=== PATIENT | female | born 1990 | race Caucasian/White ===

== ENCOUNTER 2019-01-31 19:28 | Emergency (ER) | payer MEDICAID ==
--- NOTE | 2019-01-31 19:37 | ER Report ---
History and Physical Time Seen By MD: 19:33 HPI/ROS CHIEF COMPLAINT: Headache, shortness of breath HISTORY OF PRESENT ILLNESS: 28-year-old female patient presents to emergency room with complaint of shortness breath, headache. Patient states that she is currently traveling from [place] to [place]. She states that she developed some shortness of breath as well as headache this afternoon. She states the pain worse and so she decided she would stop and be evaluated. She states that she did come into town and then called EMS who brought to the emergency room. Patient states the shortness of breath seems to be worse with activity. She states she did have some very transient chest pain. She denies any nausea, vomiting or diarrhea. Patient states that she has not taken any medication for this. REVIEW OF SYSTEMS: Respiratory: As noted above Cardiovascular: No chest pain, no palpitations. Gastrointestinal: No vomiting, no abdominal pain. Musculoskeletal: No back pain. Allergies: Coded Allergies: acetaminophen (Verified Allergy, Intermediate, 01/31/19) hydrocodone (Verified Allergy, Intermediate, 01/31/19) Home Meds Active Scripts Amoxicillin/Pot Clav 875-125 Mg Tab (AUGMENTIN 875-125 TABLET) 1 Each Tablet, 1 TAB PO Q12H, #12 TAB Prov:BRIGIDO MOORE EXPLOSIVES OPERATOR 01/31/19 Past Medical/Surgical History Patient has a past medical history of cholecystitis, anxiety. Patient has a surgical history of cholecystectomy. Reviewed Nurses Notes: Yes Constitutional Vital Sign - Last 24 Hours 01/31/19 19:33 Temp 98.6 Pulse 84 Resp 18 B/P (MAP) 130/69 Pulse Ox 94 O2 Delivery Room Air Physical Exam General Appearance: The patient is alert, has no immediate need for airway protection and no current signs of toxicity. Respiratory: Chest is non tender, lungs are clear to auscultation. Cardiac: regular rate and rhythm Gastrointestinal: Abdomen is soft and non tender, no masses, bowel sounds normal. Musculoskeletal: Neck: Neck is supple and non tender. Extremities have full range of motion and are non tender. Skin: No rashes or lesions. Neuro: Patient is alert and oriented 4, cranial nerves II through XII grossly intact. DIFFERENTIAL DIAGNOSIS: After history and physical exam differential diagnosis was considered for headache including but not limited to subarachnoid hemorrhage, migraine headache, tension headache and infectious causes such as meningitis, pharyngitis and sinusitis. Included in the differential is shortness of breath including but not limited to pulmonary infectious process, COPD, asthma, pulmonary embolus and congestive heart failure. Medical Decision Making Data Points Result Diagram: 01/31/19190901/31/191909 Laboratory Hematology Test 01/31/19 19:10 White Blood Count 7.2 k/uL (4.5-11.0) Red Blood Count 5.69 M/uL (4.17-5.56) H Hemoglobin 14.5 g/dL (12.0-16.0) Hematocrit 43.5 % (34.0-47.0) Mean Corpuscular Volume 76.5 fL (80.0-96.0) L Mean Corpuscular Hemoglobin 25.4 pg (26.0-33.0) L Mean Corpuscular Hemoglobin Concent 33.3 g/dL (32.0-36.0) Red Cell Distribution Width 15.9 % (11.5-14.5) H Platelet Count 311 K/uL (150-450) Mean Platelet Volume 7.2 fL (7.2-11.1) Neutrophils (%) (Auto) 59.3 % (39.4-72.5) Lymphocytes (%) (Auto) 30.5 % (17.6-49.6) Monocytes (%) (Auto) 7.5 % (4.1-12.4) Eosinophils (%) (Auto) 2.2 % (0.4-6.7) Basophils (%) (Auto) 0.5 % (0.3-1.4) Nucleated RBC Relative Count (auto) 0.2 /100WBC Neutrophils # (Auto) 4.3 K/uL (2.0-7.4) Lymphocytes # (Auto) 2.2 K/uL (1.3-3.6) Monocytes # (Auto) 0.5 K/uL (0.3-1.0) Eosinophils # (Auto) 0.2 K/uL (0.0-0.5) Basophils # (Auto) 0.0 K/uL (0.0-0.1) Nucleated RBC Absolute Count (auto) 0.02 K/uL Erythrocyte Sedimentation Rate 32 mm/HOUR (0-20) H Chemistry Test 01/31/19 19:10 Sodium Level 139 mmol/L (137-145) Potassium Level 3.6 mmol/L (3.5-5.0) Chloride Level 106 mmol/L (98-107) Carbon Dioxide Level 23 mmol/L (22-31) Blood Urea Nitrogen 11 mg/dl (7-18) Creatinine 0.70 mg/dl (0.52-1.04) Glomerular Filtration Rate Calc > 60.0 Random Glucose 109 mg/dl (75-110) Calcium Level 9.3 mg/dl (8.4-10.2) Total Bilirubin 0.3 mg/dl (0.2-1.3) Aspartate Amino Transf (AST/SGOT) 23 U/L (0-35) Alanine Aminotransferase (ALT/SGPT) 42 U/L (0-56) Alkaline Phosphatase 82 U/L (0-126) Troponin I < 0.012 ng/ml B-Type Natriuretic Peptide < 5 pg/ml (0-100) Total Protein 7.2 g/dl (6.3-8.2) Albumin 4.0 g/dl (3.5-5.0) Human Chorionic Gonadotropin, Qual Negative (NEGATIVE) Coagulation Test 01/31/19 19:10 Prothrombin Time 12.1 seconds (12.0-14.4) Prothromb Time International Ratio 0.90 Activated Partial Thromboplast Time 31 seconds (23-35) D-Dimer Quantitative (PE/DVT) < 0.27 ug/ml (0-0.50) EKG/Imaging EKG Interpretation 12 lead EKG: Rhythm: normal sinus rhythm with a ventricular rate of 84 bpm [place]: normal QRS: normal ST segments: normal Imaging EXAMINATION: Chest radiographs 2 views HISTORY: Headache. Chest pain. COMPARISON: None. FINDINGS: PA and lateral views of the chest are submitted. Lines/tubes: None. Lungs/pleura: No focal consolidation or pleural effusion. Pulmonary vascularity is within normal limits. No evidence of pneumothorax. Heart: Normal heart size. Mediastinum: Negative. Bony structures/body wall: Negative. IMPRESSION: No radiographic evidence of acute cardiopulmonary disease. Report Dictated By: Juan Bernal MD at 01/31/2019 8:55 PM Report E-Signed By: Juan Bernal MD at 01/31/2019 8:57 PM EXAMINATION: Head CT without intravenous contrast HISTORY: Headache. COMPARISON: None. TECHNIQUE: Contiguous axial images were obtained from the skull base to the vertex without intravenous contrast. Sagittal and coronal reformatted images are also submitted. One of the following dose optimization techniques was utilized in the performance of this exam: Automated exposure control; adjustment of the mA and/or kV according to the patient's size; or use of an iterative reconstruct ion technique. Specific details can be referenced in the facility's radiology CT exam operational policy. FINDINGS: Brain and intracranial structures: Ventricles, sulci, and cisterns are normal in size. Tan-white matter differentiation is maintained. No midline shift, acute hemorrhage, acute infarct, or mass. Calvarium / scalp: Negative. Skull base / visualized face: Negative. Visualized sinuses / orbits: Moderate mucosal thickening and frothy secretions in the right maxillary sinus. Moderate mucosal thickening in the left maxillary sinus. Moderate patchy mucosal thickening in the ethmoid air cells. Mild mucosal thickening in the frontal sinuses. Mild mucosal thickening in the right sphenoid sinus. Leftward deviation of the nasal septum. Bilateral maxillary medial antrostomies which are patent. IMPRESSION: No CT evidence of acute intracranial pathology. Moderate paranasal sinus mucosal disease. Correlate for signs of acute sinusitis. Report Dictated By: Juan Bernal MD at 01/31/2019 8:57 PM Report E-Signed By: Juan Bernal MD at 01/31/2019 9:05 PM ED Course/Re-evaluation ED Course Patient was admitted when examined, history and physical were obtained. Differential diagnoses were considered. On examination lungs are clear, heart is regular, abdomen soft nontender. Patient was complaining of significant headache. She did have some tenderness to the right side of the head. An IV was started, a CBC, CMP, ESR, BNP, troponin, chest x-ray, CT scan of the head were done. Lab results were unremarkable, patient did have an elevated ESR of 32. BNP was less than 5, troponin was negative. CT scan of the head did show significant sinus disease in especially in the right maxillary sinus, as well as lipid the left. With those likely the cause of her headache. We will go ahead and get her on antibiotics. Patient had negative chest x-ray, we will have her follow-up with primary care provider in the next week. Patient verbalized understanding and agreement with plan. Decision to Disposition Date: Jan 31, 2019 Decision to Disposition Time: 21:17 Depart Departure Latest Vital Signs Vital Signs Date Time Temp Pulse Resp B/P (MAP) Pulse Ox O2 Delivery O2 Flow Rate FiO2 8/1/19 19:33 98.6 84 18 130/69 94 Room Air Impression: Primary Impression: Acute bacterial sinusitis Condition: Improved Disposition: HOME OR SELF-CARE New Scripts Amoxicillin/Pot Clav 875-125 Mg Tab (AUGMENTIN 875-125 TABLET) 1 Each Tablet 1 TAB PO Q12H, #12 TAB Prov: BRIGIDO MOORE 01/31/19 Patient Instructions: Sinusitis (ED) Additional Instructions: Increase fluid intake. Get plenty of rest. Follow up with your primary care provider in the next week. Take the medication as prescribed. Return to the ER if condition worsens. Take Tylenol or Ibuprofen as needed for pain. BRIGIDO MOROE Jan 31, 2019 19:37
[2019-01-31 19:55] LABS: PLATELET COUNT, AUTOMATED 311 K/uL (150-450)
[2019-01-31 20:00] VITALS: BP 110/85
[2019-01-31 20:08] LABS: INR 0.9
--- NOTE | 2019-01-31 21:04 | RADIOLOGY IMAGING REPORT ---
FACILITY: [facility] - [place] PATIENT NAME: Mira Medrano : 1990 MR: [id number] V: [id number] EXAM DATE: ORDERING PHYSICIAN: BRIGIDO MOORE TECHNOLOGIST: Location: [facility] - [place] Patient: Mira Medrano : 1990 Visit/Account:[id number] Date of Sevice: 01/31/2019 EXAMINATION: Chest radiographs 2 views HISTORY: Headache. Chest pain. COMPARISON: None. FINDINGS: PA and lateral views of the chest are submitted. Lines/tubes: None. Lungs/pleura: No focal consolidation or pleural effusion. Pulmonary vascularity is within normal li mits. No evidence of pneumothorax. Heart: Normal heart size. Mediastinum: Negative. Bony structures/body wall: Negative. IMPRESSION: No radiographic evidence of acute cardiopulmonary disease. Report Dictated By: Juan Bernal MD at 01/31/2019 8:55 PM Report E-Signed By: Juan Bernal MD at 01/31/2019 8:57 PM WSN:[email or web address]
--- NOTE | 2019-01-31 21:13 | RADIOLOGY IMAGING REPORT ---
FACILITY: [facility] PATIENT NAME: Miar Medrano : 1990 MR: [id number] V: [id number] EXAM DATE: ORDERING PHYSICIAN: BRIGIDO MOORE TECHNOLOGIST: Location: [facility] - [place] Patient: Mira Medrano : 1990 Visit/Account:[id number] Date of Sevice: 01/31/2019 EXAMINATION: Head CT without intravenous contrast HISTORY: Headache. COMPARISON: None. TECHNIQUE: Contiguous axial images were obtained from the skull base to the vertex without intraven ous contrast. Sagittal and coronal reformatted images are also submitted. One of the following dose optimization techniques was utilized in the performance of this exam: Autom ated exposure control; adjustment of the mA and/or kV according to the patient's size; or use of an i terative reconstruction technique. Specific details can be referenced in the facility's radiology C T exam operational policy. FINDINGS: Brain and intracranial structures: Ventricles, sulci, and cisterns are normal in size. Tan-white m atter differentiation is maintained. No midline shift, acute hemorrhage, acute infarct, or mass. Calvarium / scalp: Negative. Skull base / visualized face: Negative. Visualized sinuses / orbits: Moderate mucosal thickening and frothy secretions in the right maxillar y sinus. Moderate mucosal thickening in the left maxillary sinus. Moderate patchy mucosal thickenin g in the ethmoid air cells. Mild mucosal thickening in the frontal sinuses. Mild mucosal thickening in the right sphenoid sinus. Leftward deviation of the nasal septum. Bilateral maxillary medial an trostomies which are patent. IMPRESSION: No CT evidence of acute intracranial pathology. Moderate paranasal sinus mucosal disease. Correlate for signs of acute sinusitis. Report Dictated By: Juan Bernal MD at 01/31/2019 8:57 PM Report E-Signed By: Juan Bernal MD at 01/31/2019 9:05 PM WSN:[email or web address]
[2019-01-31] MEDS ORDERED: AMOX-559 PO (21:18)
[2019-01-31] MEDS ORDERED: AMOX/CLAV 875 MG TAB PO ONE (21:25)
--- NOTE | 2019-02-01 10:14 | EKG ---
FACILITY: [facility] - [place] PATIENT NAME: AMOS LENNON : [id number] MR: [id number] V: [id number] EXAM DATE: ORDERING PHYSICIAN: BRIGIDO MOORE TECHNOLOGIST: KARIN Test Reason : SOB Blood Pressure : / mmHG Vent. Rate : 084 BPM Atrial Rate : 084 BPM P-R Int : 170 ms QRS Dur : 088 ms QT Int : 374 ms P-R-T Axes : 051 069 047 degrees QTc Int : 441 ms Normal sinus rhythm Normal ECG No previous ECGs available Confirmed by DIXON FRANK ([id number]) on 02/01/2019 1:56:11 PM Referred By: Confirmed By:DIXON FRANK
== END 2019-01-31 21:30 | disposition home or self-care (01) ==
LOC: ER 19:36
DX: J01.80 Other acute sinusitis (principal); B96.89 Other specified bacterial agents as the cause of diseases classified elsewhere
CPT/HCPCS: 70450; 71046; 82040; 82247; 82310; 82374; 82435; 82565; 82947; 83880; 84075; 84132; 84155; 84295; 84450; 84460; 84484; 84520; 84703; 85025; 85379; 85610; 85651; 85730; 93005

== ENCOUNTER → 2019-01-31 | Outpatient (CLI) | payer MEDICAID ==
[~2019-01-31] MED LIST: AMOX-559 PO
== END ==
LOC: AMB 18:59
PROVIDERS: ATTEND Nurse Practitioner
DX: R06.00 Dyspnea, unspecified (principal); R07.89 Other chest pain
CPT/HCPCS: A0425; A0427